=== PATIENT | male | born 1970 | race African-American/Black ===

== ENCOUNTER 2018-08-29 17:13 | Emergency (ER) | payer BC, OTHER ==
[~2018-08-29] VITALS: Ht 182.9 cm; Wt 91.0 kg
[2018-08-29] MEDS ORDERED: IBUPROFEN 600MG TABLET PO ONE (19:45)
[2018-08-29 20:39] VITALS: BP 127/71
== END 2018-08-29 20:42 | disposition home or self-care (01) ==
LOC: ER 17:52
DX: S56.312A Strain of extensor or abductor muscles, fascia and tendons of left thumb at forearm level, initial encounter (principal); E78.00 Pure hypercholesterolemia, unspecified; F12.10 Cannabis abuse, uncomplicated; F17.200 Nicotine dependence, unspecified, uncomplicated; M79.645 Pain in left finger(s); X58.XXXA Exposure to other specified factors, initial encounter; Y93.89 Activity, other specified; Y92.89 Other specified places as the place of occurrence of the external cause; Y99.8 Other external cause status
CPT/HCPCS: 73140; 99283